=== PATIENT | female | born 1960 | race Caucasian/White ===

== ENCOUNTER → 2019-12-23 | Outpatient (CLI) | payer SELFPAY ==
[2019-12-23 16:20] LABS: MEAN CORPUSCULAR HGB 29.2 pg (27.0-31.0); MEAN CORPUSCULAR HGB CONC 32.8 g/dl (33.0-37.0); MEAN PLATELET VOLUME 9.5 fl (9.6-12.3); RED BLOOD COUNT 4.38 10*6/uL (4.10-5.10); RED CELL DISTRI WIDTH 12.2 % (0-14.5); WHITE BLOOD COUNT 8.3 10*3/uL (4.8-10.8)
[2019-12-23 16:48] LABS: ALBUMIN 3.6 gm/dl (3.1-4.5); ALKALINE PHOSPHATASE 128 U/L (45-117); BUN 8 mg/dl (7-24); CHLORIDE 109 mmol/L (98-107); CREATININE 0.65 mg/dL (0.55-1.02); POTASSIUM 3.6 mmol/L (3.5-5.1); SGOT/AST 18 IU/L (3-35); SGPT/ALT 32 U/L (12-78); SODIUM 142 mmol/L (136-145); TOTAL PROTEIN 6.9 gm/dL (6.4-8.2)
== END | disposition home or self-care (01) ==
LOC: LAB 15:46
PROVIDERS: Family Medicine
DX: E55.9 Vitamin D deficiency, unspecified (principal); E78.00 Pure hypercholesterolemia, unspecified; R10.9 Unspecified abdominal pain

== ENCOUNTER → 2019-12-30 | Outpatient (CLI) | payer SELFPAY | END | disposition home or self-care (01) | LOC: CT 13:00 | DX: R10.12 Left upper quadrant pain (principal); Z90.49 Acquired absence of other specified parts of digestive tract; Z90.710 Acquired absence of both cervix and uterus ==

== ENCOUNTER → 2020-04-19 | Outpatient (CLI) | payer SELFPAY | END | disposition home or self-care (01) | LOC: COVID19 08:09 | PROVIDERS: ATTEND Family Medicine | DX: R43.9 Unspecified disturbances of smell and taste (principal); J02.9 Acute pharyngitis, unspecified; Z20.828 Contact with and (suspected) exposure to other viral communicable diseases ==

== ENCOUNTER → 2024-05-11 | Outpatient (CLI) | payer BC ==
[~2024-05-11] MED LIST: ALDACTONE50 M1 PO; ASPIRIN81 M1 PO; D3-200050 MCG PO; FOLIC ACID PO; IMDUR SA30 MG PO; LEVOTHYROXINE100 MC1 PO; LOSARTAN POTAS100 M1 PO; MAGNESIUM250 M1 PO; METOPROLOL SUCC50 M1 PO; Regadenoson 0.4 MG/5 ML SYR IV ONE; Technetium Tc 99M Tetrofosmi 0.23 MG KIT IJ SCH; VENLAFAXINE HY150 MG PO; WELLBUTRIN SR200 MG PO; ZINC50 M4 PO
== END | disposition home or self-care (01) ==
LOC: CARD 01:45
PROVIDERS: ATTEND Internal Medicine Cardiovascular Disease
DX: R06.09 Other forms of dyspnea (principal); I20.9 Angina pectoris, unspecified